=== PATIENT | male | born 1955 | race Caucasian/White ===

== ENCOUNTER 2019-01-18 12:58 | Emergency (ER) | payer OTHER ==
--- NOTE | 2019-01-18 13:13 | ERPHSYRPT ---
- History of Present Illness Time Seen by Provider: 01/18/19 13:12 Historian: patient, family Exam Limitations: no limitations Timing/Duration: today, sudden Activities at Onset: none Quality: burning, stabbing Abdominal Pain Onset Location: LLQ Pain Radiation: flank Severity of Pain-Max: moderate Severity of Pain-Current: moderate Modifying Factors: Improves With: nothing Associated Symptoms: denies symptoms Previous symptoms: same symptoms as today, other (kidney stones ) Allergies/Adverse Reactions: No Known Drug Allergies Allergy (Unverified 01/18/19 13:16) Home Medications: Atorvastatin Calcium [Lipitor] 80 mg DAILY 01/18/19 [History] Carvedilol 25 mg DAILY 01/18/19 [History] Lisinopril 20 mg DAILY 01/18/19 [History] - Review of Systems Constitutional: No Fever, No Chills Eyes: No Symptoms Ears, Nose, & Throat: No Symptoms Respiratory: No Cough, No Dyspnea Cardiac: No Chest Pain, No Edema, No Syncope Abdominal/Gastrointestinal: No Abdominal Pain, No Nausea, No Vomiting, No Diarrhea Genitourinary Symptoms: Hematuria, Flank Pain, No Dysuria, No Frequency, No Hesitancy, No Incontinence, No Urgency, No Urinary Retention, No Testicle Pain, No Penile Discharge Musculoskeletal: No Back Pain, No Neck Pain Skin: No Rash Neurological: No Dizziness, No Focal Weakness, No Sensory Changes Psychological: No Symptoms Endocrine: No Symptoms All Other Systems: Reviewed and Negative - Past Medical History Pertinent Past Medical History: Yes Neurological History: No Pertinent History ENT History: No Pertinent History Cardiac History: Hypertension Respiratory History: No Pertinent History Endocrine Medical History: No Pertinent History Musculoskeletal History: Arthritis GI Medical History: No Pertinent History History: Other (kidney stones) Psycho-Social History: No Pertinent History Male Reproductive Disorders: No Pertinent History - Past Surgical History Past Surgical History: Yes Neuro Surgical History: No Pertinent History Cardiac: No Pertinent History Respiratory: No Pertinent History Gastrointestinal: No Pertinent History Significant Family History: no pertinent family hx - Nursing Vital Signs Nursing Vital Signs: Initial Vital Signs Temperature 97.8 F 01/18/19 13:08 Pulse Rate 50 L 01/18/19 13:08 Respiratory Rate 18 01/18/19 13:08 Blood Pressure 135/74 01/18/19 13:08 O2 Sat by Pulse Oximetry 98 01/18/19 13:08 Pain Scale Pain Intensity 3 - Physical Exam General Appearance: mild distress, obese Eye Exam: PERRL/EOMI Ears, Nose, Throat Exam: normal ENT inspection Neck Exam: normal inspection, non-tender Respiratory Exam: normal breath sounds Cardiovascular Exam: regular rate/rhythm, normal heart sounds Gastrointestinal/Abdomen Exam: soft, tenderness (LLQ pain) Rectal Exam: deferred Back Exam: normal inspection Extremity Exam: normal inspection Neurologic Exam: alert, oriented x 3, cooperative Skin Exam: normal color - Course Nursing assessment & vital signs reviewed: Yes Ordered Tests: Active Orders 24 hr Category Date Time Status ABDOMEN AND PELVIS W/0 CONTRAS [CT] Stat Exams 01/18/19 13:45 Taken CBC W DIFF Stat Lab 01/18/19 14:26 Completed CMP Stat Lab 01/18/19 14:26 Completed CULTURE,URINE Stat Lab 01/18/19 15:00 Received UA W/RFX UR CULTURE Stat Lab 01/18/19 15:00 Completed Medication Summary Discontinued Medications Generic Name Dose Route Start Last Admin Trade Name Freq PRN Reason Stop Dose Admin Ketorolac Tromethamine 30 mg 01/18/19 13:42 01/18/19 13:47 Toradol 30 Mg Injection IV 01/18/19 13:43 30 mg STAT ONE Administration Ketorolac Tromethamine Confirm 01/18/19 13:46 Toradol 30 Mg Injection Administered 01/18/19 13:47 Dose 30 mg .ROUTE .STK-MED ONE Ondansetron HCl 4 mg 01/18/19 13:43 01/18/19 13:47 Zofran 4 Mg/2 Ml Vial IV 01/18/19 13:44 4 mg STAT ONE Administration Ondansetron HCl Confirm 01/18/19 13:46 Zofran 4 Mg/2 Ml Vial Administered 01/18/19 13:47 Dose 4 mg .ROUTE .STK-MED ONE Lab/Rad Data: Laboratory Result Diagrams 01/18/19 14:26 01/18/19 14:26 Laboratory Results 01/18/19 01/18/19 01/18/19 Range/Units 15:00 14:26 14:26 WBC 8.9 (4.0-10.5) K/mm3 RBC 4.71 (4.1-5.6) M/mm3 Hgb 14.6 (12.5-18.0) gm/dl Hct 42.7 (42-50) % MCV 90.7 (78-100) fl MCH 31.0 (26-32) pg MCHC 34.2 (32-36) g/dl RDW 13.8 (11.5-14.0) % Plt Count 155 (150-450) K/mm3 MPV 11.3 H (6-9.5) fl Gran % 81.8 H (36.0-66.0) % Eos # (Auto) 0.05 (0-0.5) Absolute Lymphs (auto) 0.93 L (1.0-4.6) Absolute Monos (auto) 0.63 (0.0-1.3) Lymphocytes % 10.4 L (24.0-44.0) % Monocytes % 7.0 (0.0-12.0) % Eosinophils % 0.6 (0.00-5.0) % Basophils % 0.2 (0.0-0.4) % Absolute Granulocytes 7.31 H (1.4-6.9) Basophils # 0.02 (0-0.4) Sodium 143 (137-145) mmol/L Potassium 4.9 (3.5-5.1) mmol/L Chloride 107 (98-107) mmol/L Carbon Dioxide 24 (22-30) mmol/L Anion Gap 16.8 H (5-15) MEQ/L BUN 26 H (9-20) mg/dL Creatinine 1.27 H (0.66-1.25) mg/dL Estimated GFR > 60.0 ML/MIN Glucose 144 H (74-106) mg/dL Calcium 9.8 (8.4-10.2) mg/dL Total Bilirubin 1.30 (0.2-1.3) mg/dL AST 71 H (17-59) U/L ALT 29 (0-50) U/L Alkaline Phosphatase 70 (38-126) U/L Serum Total Protein 7.7 (6.3-8.2) g/dL Albumin 4.5 (3.5-5.0) g/dL Urine Color YELLOW (YELLOW) Urine Appearance CLEAR (CLEAR) Urine pH 5.0 (5-6) Ur Specific [place] 1.026 (1.005-1.025) Urine Protein NEGATIVE (Negative) Urine Ketones TRACE (NEGATIVE) Urine Blood NEGATIVE (0-5) Cornelio/ul Urine Nitrite NEGATIVE (NEGATIVE) Urine Bilirubin NEGATIVE (NEGATIVE) Urine Urobilinogen 2 (0-1) mg/dL Ur Leukocyte Esterase TRACE (NEGATIVE) Urine WBC (Auto) 6-10 (0-5) /HPF Urine RBC (Auto) 11-15 (0-2) /HPF U Epithel Cells (Auto) RARE (FEW) /HPF Urine Bacteria (Auto) RARE (NEGATIVE) /HPF Urine Mucus (Auto) SLIGHT (NEGATIVE) /HPF Urine Culture Reflexed YES (NO) Urine Glucose NEGATIVE (NEGATIVE) mg/dL CT 6x9 mm stone at left UVJ, mild hydronephrosis. - Progress Progress: improved, re-examined Progress Note: 01/18/19 18:00 Pain free with toradol. He has a urologist in [place], will call there tomorrow. Rx norco and zofran prn. Stone big, may need a basket procedure. Counseled pt/family regarding: lab results, diagnosis, need for follow-up, rad results - Departure Departure Disposition: Home Clinical Impression: Ureteral stone with hydronephrosis Condition: Stable Critical Care Time: No Referrals: TETO CARSON MD [Primary Care Provider] - Instructions: Kidney Stones in Adults Additional Instructions: Increase fluids. Pain medicine as needed. Contact your urologist in the morning. Take the computer disc to the appt. Plan of Treatment: Rx med. He has a urologist in [place] he will call in the morning. Prescriptions: Ondansetron ODT 4 MG [Zofran Odt 4 mg] 4 mg PO Q6H PRN PRN #12 tab.rapdis PRN Reason: Nausea/Vomiting Hydrocodone/Acetaminophen [[place] Hd 10-325 mg Tablet] 1 each PO Q4-6HPRN PRN # 12 tablet MDD 6 PRN Reason: Pain
[2019-01-18] MEDS ORDERED: TORAdol 30 mg Injection IV ONE (13:42)
[2019-01-18] MEDS ORDERED: Zofran 4 MG/2 ML VIAL IV ONE (13:43)
[2019-01-18] MEDS ORDERED: Zofran 4 MG/2 ML VIAL ONE (13:46)
[2019-01-18] MEDS ORDERED: TORAdol 30 mg Injection ONE (13:46)
[2019-01-18 14:37] LABS: BASOPHIL % 0.2 % (0.0-0.4); Basophil (Absolute #) 0.02 (0-0.4); Eosinophil % 0.6 % (0.00-5.0); Eosinophil (Absolute #) 0.05 (0-0.5); Granulocyte Absolute (ANC) 7.31 (1.4-6.9); Granulocytes % 81.8 % (36.0-66.0); Hematocrit 42.7 % (42-50); Hemoglobin 14.6 gm/dl (12.5-18.0); Lymphocyte (Absolute #) 0.93 (1.0-4.6); Lymphocytes % 10.4 % (24.0-44.0); Mean Cell Volume 90.7 fl (78-100); Mean Corpuscular Hgb Concent. 34.2 g/dl (32-36); Mean Platelet Volume 11.3 fl (6-9.5); Monocyte (Absolute #) 0.63 (0.0-1.3); Platelet Count 155 K/mm3 (150-450); Red Blood Count 4.71 M/mm3 (4.1-5.6); Red Cell Distribution Width 13.8 % (11.5-14.0); White Blood Count 8.9 K/mm3 (4.0-10.5)
[2019-01-18 14:42] LABS: ALBUMIN 4.5 g/dL (3.5-5.0); ALKALINE PHOSPHATASE 70 U/L (38-126); ANION GAP 16.8 MEQ/L (5-15); BLOOD UREA NITROGEN 26 mg/dL (9-20); CHLORIDE 107 mmol/L (98-107); Calcium 9.8 mg/dL (8.4-10.2); Carbon Dioxide 24 mmol/L (22-30); Creatinine 1 1.27 mg/dL (0.66-1.25); Glucose 144 mg/dL (74-106); Potassium 4.9 mmol/L (3.5-5.1); SGOT/AST 71 U/L (17-59); SGPT/ALT 29 U/L (0-50); SODIUM 143 mmol/L (137-145); Total Protein 7.7 g/dL (6.3-8.2)
[2019-01-18 15:10] LABS: Appearance CLEAR (CLEAR); Bacteria RARE /HPF (NEGATIVE); Bilirubin NEGATIVE (NEGATIVE); Blood NEGATIVE Ery/ul (0-5); Epithelial Cells RARE /HPF (FEW); Glucose NEGATIVE (NEGATIVE); Ketones TRACE (NEGATIVE); Leukocyte Esterase TRACE (NEGATIVE); Mucus SLIGHT /HPF (NEGATIVE); Nitrite NEGATIVE (NEGATIVE); Protein,Urine Dip NEGATIVE (Negative); Specific Gravity 1.026 (1.005-1.025); Urobilinogen 2 mg/dL (0-1)
[2019-01-18 16:41] VITALS: BP 136/94; PULSE 62; O2SAT 100
--- NOTE | 2019-01-18 19:04 | XRAY ---
Indication: Left abdominal pain. Single episode of vomiting. Multiple contiguous axial images obtained through the abdomen and pelvis without contrast as ordered. Comparison: None Lung bases demonstrates minimal dependent atelectasis. No infiltrate or effusion. Heart is not enlarged. Stomach is distended with food/fluid. Noncontrasted stomach and bowel loops appear nonobstructed. Normal appendix. Descending and sigmoid diverticulosis without diverticulitis. No free fluid/air. Spleen is enlarged measuring 16.3 cm in cc dimension with a few calcified granulomas. There is a 8 mm distal left ureter calculus approximately 1 cm proximal to the UVJ. Proximal left ureter is prominent and there is mild hydronephrosis with minimal perinephric stranding consistent with obstructive uropathy. Additional faint left renal punctate calculus and a 3 cm upper pole cyst. Right kidney demonstrates a 2 cm parapelvic cyst. Cholecystectomy. Remaining liver, pancreas, spleen, adrenal glands, kidneys, ureters, and bladder appear unremarkable for noncontrast exam. [place] benign prostate calcifications. Mild aortic calcifications without AAA. Osseous structures intact with mild degenerative changes throughout the thoracolumbar spine. Impression: 1. 8 mm distal left ureter calculus producing obstructive uropathy as detailed. Additional faint left renal punctate calculus and bilateral renal cysts. 2. Colonic diverticulosis without diverticulitis, splenomegaly, benign chunky prostate calcifications, and evidence for old granulomatous disease. 3. Remaining CT abdomen/pelvis without contrast exam is negative. Comment: Preliminary interpretation was made by [facility]. No discrepancy. CTDI 23.68
== END 2019-01-18 16:42 | disposition home or self-care (01) ==
LOC: ED 12:58
DX: N13.2 Hydronephrosis with renal and ureteral calculous obstruction (principal)
CPT/HCPCS: 36000; 36415; 74176; 80053; 81001; 85025; 87086; 96374; 96375; 99284; J1885; J2405